=== PATIENT | male | born 1970 | race Caucasian/White ===

== ENCOUNTER 2023-04-09 11:20 | Outpatient (AMB) | payer OTHER, SELFPAY ==
--- NOTE | 2023-04-09 11:31 | A.OFFVIS_ITS ---
Intake Intake Visit Reasons: lower back pain [facility] Specialist Required: No Assessment & Plan Assessment & Plan (1) Lumbar stenosis: Code(s): M48.061 - Spinal stenosis, lumbar region without neurogenic claudication Plan Mr Fajardo is known to us from C5-6, C6-7 ACDF for cervical myelopathy done in 2018 at [facility]. He recovered from that nicely has been caring on with his life but has developed a left leg radiculopathy. It starts in his left buttock goes down to his posterior thigh and into his outer calf. He will have occasional tingling sensation on the outside of his foot. He has tried to treat it with physical therapy, gabapentin and Motrin. These things to help to a degree, but do not completely take it away. The symptoms are aggravated with a ctivity. He can make it go away by sitting down. He is considering an injection in his low back but want to check with us 1st as to whether this would be a reasonable option. He has a lumbar MRI done in the [place] showing lumbar stenosis at L4-5 he came to review that. Past medical history: As mentioned he had a see put spine surgery, shoulder surgery, Achilles surgery, he has also had carpal tunnel and ulnar nerve release. Medications: Gabapentin and Motrin Social history does not smoke Allergies: Penicillin Physical exam: He is awake alert oriented no acute distress, he has full strength of bilateral lower extremities, gait is normal Imaging: Lumbar MRI done in the [place] years 2022 shows that he has normal alignment of the spine with some mild disc degeneration at L4-5. 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 There is no stenosis at any other levels. Impression: This is a 52-year-old gentleman known to us from a previous cervical myelopathy and anterior cervical fusion at C5-6 and C6-7 2018 who presents today for follow-up evaluation about his low back. He has claudicating left leg pain going down to his outer calf. He has moderate to severe stenosis at L4-5. He has tried physical therapy, Motrin and gabapentin. At this point the symptoms are manageable so he is not really interested in surgery. He was going to consider an injection but really is not feeling a lot of confidence that that will do much and he does not want the cortisone injected into his body. I reassured him that this is not a dangerous condition but 1 that will generally get worse over time and if the symptoms progress to where they are not managed well with the non operative treatments that he would be likely a good candidate for left L4-5 decompression. Total amount of time spent in this visit was 45 minutes in discussion of symptoms, lumbar imaging results and subsequent plan of care Lucio Kunz MD,PhD [facility] Coding Level of Care Code New Pt Level 4 (80824) Diagnoses Lumbar stenosis M48.061
== END 2023-04-09 11:55 | disposition home or self-care (01) ==
PROVIDERS: Visit Provider Physician Assistant
DX: M48.061 Spinal stenosis, lumbar region without neurogenic claudication (principal)
CPT/HCPCS: 99204

== ENCOUNTER → 2023-04-09 11:20 | Outpatient (BNVA) | payer OTHER, SELFPAY | PROVIDERS: Visit Provider Physician Assistant | DX: M48.061 Spinal stenosis, lumbar region without neurogenic claudication (principal) | CPT/HCPCS: 99202 ==

== ENCOUNTER 2025-03-10 14:15 | Outpatient (REF) | payer OTHER, SELFPAY ==
--- NOTE | ~2025-03-10 | XR_ITS ---
EXAMINATION: Lumbar spine 4 views. CLINICAL INDICATION: Low back pain. COMPARISON: None. FINDINGS: There is maintained lumbar lordosis. The vertebral and heights and alignment is normal. There is loss of disc height virtually at every disc level with moderate ventral spondylosis at all disc levels. No aggressive lytic or sclerotic process seen. The paravertebral soft tissues are normal. SI joints are normal. No acute fracture, lytic or sclerotic process seen. XR/XR lumbar spine 4V min IMPRESSION: Degenerative disc changes with ventral spondylosis. No visible acute fracture or dislocation seen. Electronically signed by: Mario Brooks MD 03/10/2025 02:58 PM EDT
== END 2025-03-10 14:16 | disposition home or self-care (01) ==
LOC: HO.HOSX 14:15
PROVIDERS: Visit Provider Physician Assistant
DX: M51.360 Other intervertebral disc degeneration, lumbar region with discogenic back pain only (principal)
CPT/HCPCS: 72110; 99212

== ENCOUNTER 2025-03-10 14:15 | Outpatient (AMB) | payer OTHER, SELFPAY ==
--- NOTE | 2025-03-10 14:17 | A.SPINEOV_ITS ---
Vital Signs 03/10/25 14:20 Height 5 ft 7 in Weight 260 lb BMI 40.7 Intake Visit Reasons: Discuss left L4-5 decompression. Intake Note: Mr. Fajardo is here today to Discuss Surgery. Production Supervisor Required: No Allergies Penicillins Allergy (Severe, Verified 03/10/25 14:20) Rash Physical Exam Vital Signs: BMI result Body Mass Index 40.7 Assessment & Plan Assessment & Plan (1) Back pain: Code(s): M54.9 - Dorsalgia, unspecified Category: Medical Plan Mr Fajardo is here in follow-up. It has been over a year since we last saw him for his lumbar spine issues. The left leg pain he was having is gone more less. What he is dealing with now is a lower lumbar centralized pain in his back when he is bending, getting up from a chair or doing any kind of activity where he is on his feet having to walk or stand for any length of time. He can take [id number] pain medications to relieve it but it does not really help all that much. He has been having his son do some manual traction pulling on his legs and that does seem to help, he feels like it realign him to some degree. On exam he is not demonstrating any focal motor deficits. Reflexes are brisk but he has a known history of cervical myelopathy in the past. I did x-rays here today in the office and this shows multilevel degenerative disc disease, no evidence of instability on flexion or extension. I would like to order an MRI, he would like it done at [facility]. However, I did warn him that often insurance companies will require 6 weeks of PT for allowing this to be done, so if it is denied that would be the case. He understands. We can call him with results since he lives so far away. Total amount of time spent in this visit was 20 minutes in discussion of symptoms, x-ray imaging results and subsequent plan of care Lucio Kunz MD,PhD [facility] Orders: Orders XR lumbar spine 4V min Today M54.9 - Dorsalgia, unspecified MR lumbar spine wo con Today M54.9 - Dorsalgia, unspecified Coding Level of Care Code Est Pt Level 3 (32408) Diagnoses Back pain M54.9
[2025-03-10 14:20] VITALS: BMI 40.7
== END 2025-03-10 15:05 | disposition home or self-care (01) ==
LOC: HO.HNS 14:16
PROVIDERS: Visit Provider Physician Assistant
DX: M54.9 Dorsalgia, unspecified (principal)
CPT/HCPCS: 99213

== ENCOUNTER → 2025-03-10 14:42 | Outpatient (BNV) | payer OTHER, SELFPAY | PROVIDERS: Visit Provider Radiology Diagnostic Radiology | DX: M54.50 Low back pain, unspecified (principal) | CPT/HCPCS: 72110 ==

== ENCOUNTER 2025-04-07 11:38 | Outpatient (AMB) | payer OTHER, SELFPAY ==
--- NOTE | 2025-04-07 11:56 | HO.SPINEOV ---
Intake Visit Reasons: MRI f/u Intake Note: Mr. Fajardo is here today to F/u on the results of his MRI. Child Caregiver Required: No Allergies Penicillins Allergy (Severe, Verified 03/10/25 14:20) Rash Assessment & Plan Assessment & Plan (1) Sacroiliitis, not elsewhere classified: Code(s): M46.1 - Sacroiliitis, not elsewhere classified Category: Medical Plan: Dear colleague, On 04/07/2025, I saw in clinic Marcelo Banks review his MRI of the lumbar spine. He states that he is having pain in the right SI joint area. The pain is worse with standing and walking. Used to be able to pop that area back into place to alleviate the symptoms. The pain is worse with turning in bed. A belt improves his symptoms. These are all characteristic of sacroiliitis. I reviewed the MRI of the lumbar spine of [facility] of 03/19/2025 which shows multilevel lumbar degenerative disc disease and mild to moderate spinal stenosis at L4-5. I would like to refer him for right SI joint injection instead of further focusing on the lumbar spine. I spent 25 minutes in his consult to review imaging and discussing plan of care. Orders: Referrals Pain Management Referral M46.1 - Sacroiliitis, not elsewhere classified Coding Level of Care Code Est Pt Level 3 (49203) Diagnoses Sacroiliitis, not elsewhere classified M46.1
--- OUTSIDE RECORDS SUMMARY | 2025-04-07 14:06 | XMS_ITS | Encounter Summary ---
Author Organization [employer] Address [address] [place] [address] Care Team Providers Care Engineer Technical Staff Name Role Phone Jerel Dubose Primary Care Provider [phone] Matthew Bernard Unavailable Encounter Details Date Type Department Care Team ([facility] st Contact Info) Description 01/11/2025 Telephone [facility] [address] [place] [address] Jerel Dubose [address] [place] [address] Social History Tobacco Use Types Packs/Day Years Used Date Smoking Tobacco: Never Passive Smoke Exposure: Never Smokeless Tobacco: Never Alcohol Use Standard Drinks/Week Comments Never 0 (1 standard drink = 0.6 oz pur e alcohol) Sex and Gender Information Value Date Recorded Sex Assigned at Male 08/10/2023 1:24 PM EDT Legal Sex Male 8:33 PM EDT Gender Identity Male 08/10/2023 1:24 PM EDT Sexual Orientation Don't know 08/10/2023 1: 24 PM EDT documented as of this encounter Miscellaneous Notes * Telephone Encounter - Mariya Oreilly - 01/11/2025 1:15 PM EDT Patient is calling looking for a referral to be sent somewhere her can be put under anesthesia, please advise patient when sent out Call back # [phone] documented in this encounter Plan of Treatment Not on file documented as of this encounter Visit Diagnoses Not on filedocumented in this encounter Care Teams Engineer Technical Staff Relationship Specialty Start Date End Date Bitunov, Maxim [address] [place] [address] PCP - General 10/13/23 Matthew Bernard [address] [place] [address] Endocrinology 10/13/23 documented as of this encounter
--- OUTSIDE RECORDS SUMMARY | 2025-04-07 14:06 | XMS_ITS | Data Portability ---
Author Organization [place] - [facility], [facility] Occupational Work Experience Teacher Address [address] [place] [address] Assessment Encounter Date Assessment Date Assessment LastModified by Organization Details LastModified Time 11/14/2024 11/14/2024 Reason for Encounter [place] Encounter Date: 2:00 PM - 11/14/2024 Treating Provider: ELIANA Jack Problems Problems reviewed by: Yared Meza Problems reviewed on: 11/14/2024 02:00 pm Arthritis Severe headache/migraines Diabetes type 2 High blood pressure Asthma G.E. reflux Allergies Allergies reviewed by: Yared Meza Allergies reviewed on: 11/14/2024 02:00 pm Penicillins Medications Medications reviewed by: Yared Meza Medications reviewed on: 11/14/2024 02:00 pm omeprazole gabapentin 300 mg capsule ZyrTEC Concerta lisinopriL Motrin IB 200 mg tablet albuterol 90 mcg/actuation aerosol inhaler testosterone 100 mg/mL intramuscular suspension clindamycin HCL 300 mg capsule azithromycin 250 mg tablet ibuprofen 600 mg tablet Completed Procedures D2950 - Core buildup, including any pins when required Teeth: 4 D2740 - [place] - porcelain/ceramic substrate Teeth: 13 Stages: One Completed Procedures (cont.) CROWN PREPARATION for Zirconia crown # 13 [facility]. Medical History reviewed, per patient no changes. Reason for crown: decay undermining the distal surface of the crown. SHADE: B1 at cervical 1/3 and at incisal and middle 1/3. Pt is happy with shade. Anesthesia: infiltration using 1 in 100k epi articaine half a carpule. Bite impression for temporary crown fabrication with Status Blue for temp. Prepped tooth for ceramic crown using jud burrs, removed decay. Good Occlusal clearance. Luxatemp temp (Shade A3.5 made, occlusion checked. EMBONTE temporary cement used. Cleaned excess, checked contacts & occlusion. No complications. NV:CROWN DELIVERY #13 APatient presented to clinic for a composite filling on tooth-# 4 core build up post rct Reviewed current medical history and there are no contraindications or changes.a Reviewed risks and benefits and alternatives for today's procedure with the patient. Discussed possibility of post op tooth discomfort and in some cases needing a root canal after fillings. No therapy option was mentioned but disadvised. Verbal consent for today's procedure obtained. Anesthesia INFILTRATION USING 1 IN 100 K 2 %EPI LIDOCAINE 1 CARPULES. Caries excavation done using high speed handpiece and low speed round bur, spoon excavator closer to end of preparation. The decay is deep into dentin. Etched using 37% Phosphoric acid, rinsed and dried. Bonded with Scotch Hansen and cured. Restored in a 1.5-2mm incremental layer with flowable ( BEAUTIFUL) + packable ( FILTEK SUPREME) composite resin (Shade A2). Cured for 40 seconds. Finished, adjusted and polished occlusion. Checked interproximal and occlusion. nv #13 deliver Additional Comments: Explained and discussed conditions, findings, and plan of care. Follow-Up/Next Visit: Next appointment date is 11/29/2024 at 08:30 AM Treating Provider: Wandy MONROY Reason For Encounter: Recare Treating Provider ELIANA Jack I attest that the treatment rendered today was completed. , 8:28 PM. [email or web address] Not available 11/15/2024 13:25:32 11/29/2024 11/29/2024 Reason for Encounter Recare Encounter Date: 8:30 AM - 11/29/2024 Treating Provider: ELIANA Jack Problems Problems reviewed by: Salma Bell Problems reviewed on: 11/29/2024 08:45 am Arthritis Severe headache/migraines Diabetes type 2 High blood pressure Asthma G.E. reflux Allergies Allergies reviewed by: Salma Bell Allergies reviewed on: 11/29/2024 08:46 am Penicillins Medications Medications reviewed by: Salma Bell Medications reviewed on: 11/29/2024 08:46 am omeprazole gabapentin 300 mg capsule ZyrTEC Concerta lisinopriL Motrin IB 200 mg tablet albuterol 90 mcg/actuation aerosol inhaler testosterone 100 mg/mL intramuscular suspension clindamycin HCL 300 mg capsule azithromycin 250 mg tablet ibuprofen 600 mg tablet Completed Procedures D0120 - Periodic oral evaluation - established patient D1330 - Oral hygiene instructions D1110 - Prophylaxis - adult D0210 - Intraoral - comprehensive series of radiographic images D0603 - Caries risk assessment and documentation, with a finding of high risk Completed Procedures (cont.) D0120 Periodic Exam Patient presents to the clinic for a Periodic exam. Chief complaint: '' need my crown done on upper right side '' Patient interaction: pleasant patient, tolerated treatment well. Reviewed current medical history. Contraindications to treatment: Yes/No Last Dental Visit: Oral Hygiene: Brushing 2/day, flossing 2/day Tobacco use: non user EXTRA ORAL EXAM: Head/Neck Exam: WNL RADIOGRAPHIC FINDINGS: Radiographic bone loss: Moderate (15-35%) Caries: (Interproximal and occlusal decay) or NA Periapical: No signs of periapical lesions probable along the upper left #15 area, possible recurrent decay underneath occlusal scientology Subgingival calculus absent INTRAORAL EXAM: Oral Cancer Screening: WNL New Findings: Occlusion Dental -Caries:nothing new noted, there is possible discrepancy along the crown #5 on PA, #4 planne dfor crown, mesial surface decay is deep. Periodontal findings: Probing depth: 2-3mm. Inflammation, Calculus: mild Localized: Supragingival Gingiva: [place],Knife-edge, Soft, Inflamed in some areas mostly left posterior area, Oral hygiene: Fair DIAGNOSIS: -Periodontal: Stage 1periodontitis, generalized localized (>30% of teeth) and grading: mild risk, thete is buccal recession in the range of 2mm along #3 and #14 area -Caries risk: High Risk - D0603, TREATMENT PLAN GIVEN. -Prophylaxis -Extractions:referr al for #32 -Restorations:#15 0, -Core build-up and Crowns #4 Notes: Findings, risks, benefits, alternatives, and consequences of no treatment explained. REFERRALS: Oral Surgeon Patient dismissed in good order after all questions answered. D1110 Adult prophy Patient presents to the clinic for Adult Prophylaxis Patient interaction: pleasant patient, tolerated treatment well. Full mouth ultrasonic and hand scaling done, polished and flossed all contacts. Floss in between all teeth. Oral hygiene instructions given, including demo in brushing, flossing and use of interproximal brush. Patient was encouraged to brush teeth 2x daily for 2 minutes and floss and use interproximal brush daily. Patient dismissed in good order after all questions answered. NV: CROWN #4 Additional Comments: Explained and discussed conditions, findings, and plan of care. Follow-Up/Next Visit: Next appointment date is 06/07/2025 at 08:30 AM Treating Provider: Wandy MONROY Reason For Encounter: Recare Adult Treating Provider ELIANA Jack I attest that the treatment rendered today was completed. , 10:24 AM. [email or web address] Not available 11/30/2024 11:53:02 11/30/2024 11/30/2024 Reason for Encounter [place] Encounter Date: 8:00 AM - 11/30/2024 Treating Provider: ELIANA Jack Problems Arthritis Severe headache/migraines Diabetes type 2 High blood pressure Asthma G.E. reflux Allergies Penicillins Medications omeprazole gabapentin 300 mg capsule ZyrTEC Concerta lisinopriL Motrin IB 200 mg tablet albuterol 90 mcg/actuation aerosol inhaler testosterone 100 mg/mL intramuscular suspension clindamycin HCL 300 mg capsule azithromycin 250 mg tablet ibuprofen 600 mg tablet Completed Procedures D2740 - [place] - porcelain/ceramic substrate Teeth: 4 Stages: One Completed Procedures (cont.) CROWN PREPARATION for Zirconia crown # 4 [facility]. Medical History reviewed, per patient no changes. Reason for crown: decay undermining the mesial surface of the crown with rct completed. SHADE: B1 at cervical 1/3 and at incisal and middle 1/3. Pt is happy with shade. Anesthesia: infiltration using 1 in 100k epi articaine half a carpule. Bite impression for temporary crown fabrication with Status Blue for temp. Prepped tooth for ceramic crown using jud burrs, removed decay. Good Occlusal clearance. Luxatemp temp (Shade A3.5 made, occlusion checked. EMBONTE temporary cement used. Cleaned excess, checked contacts & occlusion. No complications. NV:CROWN DELIVERY # 4 Additional Comments: Explained and discussed conditions, findings, and plan of care. Follow-Up/Next Visit: Next appointment date is 06/08/2025 at 08:00 AM Treating Provider: Wandy MONROY Reason For Encounter: Recare Adult Treating Provider ELIANA Jack I attest that the treatment rendered today was completed. , 12:47 PM. [id number] Not available 12/01/2024 10:06:04 12/09/2024 12/09/2024 Reason for Encounter Limted/Emergency Encounter Date: 9:00 AM - 12/09/2024 Treating Provider: ELIANA Jack Problems Problems reviewed by: Mariya Chakraborty Problems reviewed on: 12/09/2024 09:28 am Arthritis Severe headache/migraines Diabetes type 2 High blood pressure Asthma G.E. reflux Allergies Allergies reviewed by: Mariya Chakraborty Allergies reviewed on: 12/09/2024 09:28 am Penicillins Medications Medications reviewed by: Mariya Chakraborty Medications reviewed on: 12/09/2024 09:28 am omeprazole gabapentin 300 mg capsule ZyrTEC Concerta lisinopriL Motrin IB 200 mg tablet albuterol 90 mcg/actuation aerosol inhaler testosterone 100 mg/mL intramuscular suspension clindamycin HCL 300 mg capsule azithromycin 250 mg tablet ibuprofen 600 mg tablet Completed Procedures D0171 - Re-evaluation - post-operative office visit Completed Procedures (cont.) pt presenst for recementation of temp crown as it came off. recemented the crown with tempbond and pt will return for delivery of final crown. nv deliver crown Additional Comments: Explained and discussed conditions, findings, and plan of care. Follow-Up/Next Visit: Next appointment date is 01/19/2025 at 03:30 PM Treating Provider: Wandy MONROY Reason For Encounter: Cr/Br Insert Treating Provider ELIANA Jack I attest that the treatment rendered today was completed. , 10:26 AM. [email or web address] Not available 12/12/2024 10:22:09 12/15/2024 12/15/2024 Reason for Encounter Cr/Br Insert Encounter Date: 2:30 PM - 12/15/2024 Treating Provider: ELIANA Jack Problems Arthritis Severe headache/migraines Diabetes type 2 High blood pressure Asthma G.E. reflux Allergies Penicillins Medications omeprazole gabapentin 300 mg capsule ZyrTEC Concerta lisinopriL Motrin IB 200 mg tablet albuterol 90 mcg/actuation aerosol inhaler testosterone 100 mg/mL intramuscular suspension clindamycin HCL 300 mg capsule azithromycin 250 mg tablet ibuprofen 600 mg tablet Completed Procedures D2740 - [place] - porcelain/ceramic substrate Teeth: 4 13 Stages: Final, Final Completed Procedures (cont.) Pt presents to clinic for Zirconia crown #4 ,#13 seating. Reviewed med Hx and meds. No changes. Removed temp crown and cleaned excess cement. Tried crown on, checked margins and occlusion, adjusted occlusion to appropriate level. Took Pre-Cementation BW to see margins// ALL MARGINS ARE SUPRAGINGIVAL AND CLINICALLY VISIBLE. [place] fits well. Placed hansen on tooth, and cemented crown with Rely-X according to video production coordinator's instructions. Checked occlusion and interproximal contacts and cleaned excess cement. Cured for 40 seconds. Post op instructions given. Pt is happy with shade and fit of crown. No complications from today's Apt. NV periodic recall and follow up Additional Comments: Explained and discussed conditions, findings, and plan of care. Follow-Up/Next Visit: Next appointment date is 01/19/2025 at 03:30 PM Treating Provider: Wandy MONROY Reason For Encounter: Cr/Br Insert Treating Provider ELIANA Jack I attest that the treatment rendered today was completed. , 4:39 PM. [email or web address] Not available 12/21/2024 15:37:11 Plan of Treatment Reminders Order Date Submit Date Provider Last Modified By Organization Details Last Modified Time Details Appointments Dental 60 2025 08:00A M ELIANA Bardales Not available Not available Not available Dental 60 2025 08:00A M RENE LORENZ BDS Not available Not available Not available Lab None recorded . Referral None recorded . Procedures None recorded . Surgeries None recorded . Imaging None recorded . Medication Orders None recorded . Patient TargetsNo targets recorded. Patient InstructionsNo instructions recorded. Reason for Referral None Reported. Medical Equipment None Reported. Allergies Allergen ID Allergen Name Allergen Category Reaction Reaction Severity Criticality Documentation Date Start Date Code Code System Note Provider Name and Address Organization Details Recorded Time 522064 Product containin g penicilli n (product) medicatio n rash Not available Not available 03/21/2022 25112 8001 SNOMED Not Available [facility] - 3792 09:58:21 Medications Name Sig Start Date Stop Date Status Note LastModified by Organization Details LastModified Time clindamycin HCl 300 mg capsule Take 1 capsule every 6 hours by oral route with meal(s) for 7 days. 2023 active Not Available Not Available Not Avai lable azithromycin 250 mg tablet TAKE 2 TABLETS (500 MG) BY ORAL ROUTE ONCE DAILY FOR 1 DAY THEN 1 TABLET (250 MG) BY ORAL ROUTE ONCE DAILY FOR 4 DAYS 2024 active Not Available Not Available Not Avai lable Motrin IB 200 mg tablet active Not Available Not Available No t Available testosterone 100 mg/mL intramuscular suspension active Not Available Not Available N ot Available gabapentin 300 mg capsule active Not Available Not Available N ot Available albuterol 90 mcg/actuation aerosol inhaler active Not Available Not Availa ble Not Available ibuprofen 600 mg tablet Take 1 tablet 3 times a day by oral route with meal(s) for 10 days. 2024 active Not Available Not Available Not Avai lable omeprazole active Not Available Not Av ailable Not Available lisinopril active Not Available Not Av ailable Not Available Zyrtec active Not Available Not Availa ble Not Available Concerta active Not Available Not Avai lable Not Available Vitals None Recorded Social History None recorded. Functional Status None recorded. Mental Status None recorded. Family History Nothing Reported. Medical History No medical history recorded. Past Encounters Encounter ID Performer Location Encounter Start Date Encounter Closed Date Diagnosis/Indication Diagnosis SNOMED-CT Code Diagnosis ICD10 Code Diagnosis IMO Codes Diagnosis Note [id number] Jaycee Rosales [facility] [address] [place] [address] 03/21/2022 09:51:56 03/28/2022 13:47:02 [id number] ELIANA Espana [facility] [address] [place] [address], [place] [id number] 08/03/2023 09:06:50 08/04/2023 09:19:44 [id number] ROSELYN CHAMPOIN, [facility] [address] [place] [address], [place] [id number] 12/01/2023 10:22:38 12/01/2023 16:27:44 [id number] ROSELYN CHAMPION, [facility] [address] [place] [address], [place] [id number] 02/22/2024 08:54:58 02/23/2024 17:18:04 [id number] Wandy obando, [facility] [address] [place] [address], [place] [id number] 09/27/2024 07:55:05 09/30/2024 10:06:24 [id number] Wandy obando, [facility] [address] [place] [address], [place] [address] 10/06/2024 08:04:00 10/11/2024 10:24:18 [id number] Wandy obando, [facility] [address] [place] [address], [place] [id number] 10/17/2024 14:02:25 10/21/2024 13:00:15 [id number] Wandy obando, [facility] [address] [place] [address], [place] [id number] 10/28/2024 13:28:07 10/31/2024 13:39:22 [id number] Wandy obando, [facility] [address] [place] [address], [place] [address] 11/14/2024 13:56:37 11/15/2024 13:25:38 [id number] Wandy obando, [facility] [address] [place] [address], [place] [address] 11/29/2024 08:31:05 11/30/2024 11:53:07 [id number] Wandy obando, ELIANA [facility] [address] [facility] [address] 11/30/2024 07:59:18 12/01/2024 10:06:09 [id number] ELIANA E[place] [facility] [address] [address] 12/09/2024 09:10:20 12/12/2024 10:22:14 [id number] Wandy obando, [facility] [place] [address] [place] [address] 12/15/2024 14:22:15 12/21/2024 15:37:16 Health Concerns Section Related Observation LastModified by Organization Detai ls LastModified Time None Recorded Concern Status LastModified by Organization Details LastModified Time None Recorded Advance Directives Directive None Recorded Payers Insurance Date Sequence Insurance Name Policy Number Policy Lind Covered Member ID Lind Member ID Guarantor Name 10/19/2024 [place] [id number] Marcelo Fajardo [id number] Marcelo Fajardo 10/19/2024 [employer] Marcelo Fajardo [id number] Marcelo Fajardo 10/19/2024 [place] [facility] Marcelo Fajardo [id number] Marcelo Fajardo 01/25/2025 [facility] MEDICARE/MEDIC AID Marcelo Fajardo [id number] Marcelo Fajardo 11/29/2024 2 [place] Marcelo Fajardo [id number] Marcelo Fajardo 10/19/2024 [place] Marcelo Fajardo [id number] Marcelo Fajarod 01/25/2025 1 [facility] - DOS PRIOR TO 2022 - DUAL ELIGIBLE (MEDICARE REPLACEMENT/AD VANTAGE - HMO) Marcelo Fajardo [id number] Marcelo Fajardo 03/21/2022 [employer] [facility] (MOVED TO HOLD) Marcelo Fajardo [id number] Marcelo Fajardo 03/21/2022 *SELF PAY* Marcelo Fajardo
--- OUTSIDE RECORDS SUMMARY | 2025-04-07 14:06 | XMS_ITS | Clinical Summary ---
Author Organization [employer] Address [address] [facility] 7 [place] [address] Care Team Providers Care Patient Service Representative Name Role Phone Jerel Dubose Primary Care Provider [phone] Matthew Bernard Unavailable Allergies Active Allergy Reactions Criticality Noted Date Comments Amitriptyline Rash Low 08/24/2023 Baclofen 08/24/2023 Other Reaction(s): muscle spams Clindamycin 08/24/2023 Other Reaction(s): c diff Codeine 08/24/2023 Other Reaction(s): chest pains Escitalopram Rash Low 08/24/2023 Gabapentin Rash Low 08/24/2023 Hydrocodone 10/02/2023 Other Reaction(s): nightmares Ketorolac Tromethamine Rash Low 08/24/2023 Metronidazole Rash Low 08/24/2023 Paroxetine 08/24/2023 Other Reaction(s): priapism Penicillin G Rash Low 08/24/2023 Penicillins Rash Low 10/02/2023 Prednisone 08/24/2023 Other Reaction(s): facial edema/anxiety/aggitation /bronchospasm Pregabalin Rash Low 08/24/2023 Sulfa Antibiotics 10/02/2023 Other Reaction(s): rash/fever Sulfamethoxazole-Trimethopri m 10/02/2023 Other Reaction(s): rash/fever Topiramate 08/24/2023 Other Reaction(s): weight gain Venlafaxine 08/24/2023 Other Reaction(s): extreme fatigue Medications albuterol 108 (90 Base) MCG/ACT inhaler Active albuterol (2.5 MG/3ML) 0.083% nebulizer solution 3 mL. 1 Active albuterol 108 (90 Base) MCG/ACT inhaler 2 puffs. Active clindamycin (Cleocin) 300 MG capsule Take 1 capsule every 6 hours by oral route with meal(s) for 7 days. 4 Active clotrimazole (Clotrimazole AF) 1 % cream 1 Application. in the morning and 1 Application. in the evening. 3 Active econazole nitrate 1 % cream 1 Application. in the morning. 3 Active fluticasone (Flonase) 50 MCG/ACT nasal spray 1 spray in the morning. Active fluticasone (Flovent) 110 MCG/ACT inhaler 1 puff in the morning and 1 puff in the evening. Active gabapentin (Neurontin) 300 MG capsule Activ e hydroCHLOROthi azide (HYDRODiuril) 25 MG tablet 1 tablet in the morning. Active hydrOXYzine pamoate (Vistaril) 25 MG capsule 2 capsules. Active ibuprofen (Motrin IB) 200 MG tablet Active lidocaine (Lidoderm) 5 % patch daily. 2 Active omeprazole (PriLOSEC) [address] capsule twice a day. 3 Active ondansetron (Zofran) 4 MG tablet TAKE 1 TABLET BY MOUTH ONCE DAILY NEEDED FOR VOMITING WITH HEADACHE NEEDED Orally daily PRN vomiting for 30 3 Active Omeprazole Magnesium (PRILOSEC PO) Active testosterone (Androgel) 50 MG/5GM (1%) gel daily. Active prochlorperazi ne (Compazine) 10 MG tablet 1 tablet. 3 Active testosterone cypionate (Depo-Testoste nano) 100 MG/ML injection Active dexmethylpheni date XR (Focalin XR) 35 MG 24 hr capsule 4 Active emtricitabine- tenofovir DF (Truvada) 200-300 MG tablet Take 1 tablet by mouth Once per day. 4 Active Breo Ellipta 100-25 MCG/ACT aerosol powder 4 Active lisinopril 40 MG tablet Take 40 mg by mouth Once per day. 4 Active methylphenidat e (Ritalin) 10 MG tablet 4 Active Ozempic, 1 MG/DOSE, 4 MG/3ML solution pen-injector INJECT 1 MG (0.75 ML) SUBCUTANEOUSLY WEEKLY 4 Active sildenafil (Viagra) 100 MG tablet TAKE 1 TABLET BY MOUTH DAILY NEEDED FOR SEXUAL ACTIVITY. TAKE 30 MINUTES TO 4 HOURS BEFORE ACTIVITY 4 Active B-D 3CC LUER-ALEJA SYR 33FO2-9/2 22G X 1-1/2 3 ML misc 4 Active cetirizine (ZyrTEC) 10 MG tablet 3 Active triamcinolone (Nasacort) 55 MCG/ACT nasal inhaler 3 Active traZODone (Desyrel) 100 MG tablet 3 tabs qhs Active Active Problems Problem Noted Date Diagnosed Date Dental caries 10/31/2023 Achilles tendinitis 08/24/2023 Athlete's foot 08/24/2023 Tinea pedis 08/24/2023 Cervicalgia 08/24/2023 Benign prostatic hyperplasia 08/24/2023 Chest pain 08/24/2023 Headache 08/24/2023 Chronic pain 08/24/2023 Class 2 obesity 08/24/2023 Disorder of upper respiratory system 08/24/2023 Erectile dysfunction 08/24/2023 Excessive eating 08/24/2023 Gastroesophageal reflux disease 08/24/2023 Hyperlipemia 08/24/2023 Hypertension 08/24/2023 Incontinence 08/24/2023 Malaise and fatigue 08/24/2023 Nausea 08/24/2023 Obstructive sleep apnea 08/24/2023 Opioid dependence in remission (CMS/[facility]) 024 Pain in joint involving ankle and foot Posttraumatic stress disorder 08/24/2023 Prediabetes 08/24/2023 Severe recurrent major depre ssion with psychotic features (CMS/HCC) 08/24/2023 Testosterone 99-stbk-totraybyxqnqr deficiency Urinary hesitancy 08/24/2023 Wheal 08/24/2023 Encounters Date Type Department Care Team Description 01/11/[address] [address] Jerel Dubose from Last 3 Months Social History Tobacco Use Types Packs/Day Years [...] Don't know 08/10/2023 1: 24 PM EDT Last Filed Vital Signs Vital Sign Reading Time Taken Comments Blood Pressure 133/87 12/28/2024 7:35 AM EDT Pulse 95 12/28/2024 7:35 AM EDT Temperature 37.1 C (98.7 F) 12/28/2024 7:35 AM EDT Respiratory Rate - - Oxygen Saturation - - Inhaled Oxygen Concentration - - Weight - - Height - - Body Mass Index - - Plan of Treatment Health Maintenance Due Date Last Done Comments CT Colonography 1970 Dental Oral Exam 1970 Dental Prophylaxis 1970 Dental X-Ray: Bitewings 1970 Depression Screening 1970 Diabetes: Hemoglobin A1C 1970 FIT DNA/Cologuard 1970 FIT 1970 FOBT 1970 HIV Screening 1970 Lipid Panel 1970 SDOH Screening 1970 Sigmoidoscopy 1970 Disability Screening 1970 Alcohol/Substance Use Screening 1982 Hepatitis C Screening 1988 Hepatitis B Vaccines (1 of 3 - 19+ 3-dose series) 1989 Colonoscopy 03/07/2019 03/07/2009 Colorectal Cancer Screening 03/07/2019 Zoster Vaccines (1 of 2) 2020 Influenza Vaccine (#1) 2025 , 05/05/2023, 04/11/2022, Additional history exists Tobacco Screening 12/28/2025 12/28/2024 Dental X-Ray: Full Mouth 12/30/2027 12/28/2024, 09/29 DTaP/Tdap/Td Vaccines (4 - Td or Tdap) 05/30/2034 05/30/2024, 07/04/2011, 07/04/2011, Additional history exists RSV Patients and Patients Aged 60 years or older (1 - 1-dose 75+ series) 2045 Pneumococcal Vaccine: 50+ Years Completed 05/05/2023 COVID-19 Vaccine Completed 05/30/2024, 07/2020, 10/31/2020 HIB Vaccines Aged Out No longer eligi ble based on patient's age to complete this topic HPV Vaccines Aged Out No longer eligi ble based on patient's age to complete this topic Hepatitis A Vaccines Aged Out No long er eligible based on patient's age to complete this topic IPV Vaccines Aged Out No longer eligi ble based on patient's age to complete this topic Meningococcal B Vaccine Aged Out No l onger eligible based on patient's age to complete this topic Meningococcal Vaccine Aged Out No charles gerda eligible based on patient's age to complete this topic RSV under 20 months Aged Out No longe r eligible based on patient's age to complete this topic Rotavirus Vaccines Aged Out No longer eligible based on patient's age to complete this topic Procedures Procedure Name Priority Date/Time Associated Diagnosis Comments Full PANORAMIC RADIOGRAPHIC IMAGE Routine 12/28/2024 7:30 AM EDT COLONOSCOPY Routine 03/07/2009 12:00 AM EDT from Last 3 Months or Most Recently Relevant to Health Maintenance Results * COLONOSCOPY: ANABEL PARRISH (03/07/2009 12:00 AM EDT) Anatomical Region Laterality Modality Endoscopy 03/07/2009 Narrative 03/07/2009 12:00 AM EDT Refer to Fovea for result details Legacy Procedure: COLONOSCOPY: ANABEL PARRISH Procedure Note Provider, Estevan, - 09/25/2022 Refer to Fovea for result details Legacy Procedure: COLONOSCOPY: ANABEL PARRISH Historical Provider ENDOSCOPY PROCEDURE ORDER ZHOU Final Result from Last 3 Months or Most Recently Relevant to Health Maintenance Insurance Care Teams Patient Service Representative Relationship Specialty Start Date End Date Jerel Dubose [address] [place] [address] PCP - General 10/13/23 Matthew Bernard [address] [place] [address] Endocrinology 10/13/23
--- OUTSIDE RECORDS SUMMARY | 2025-04-07 14:06 | XMS_ITS | Patient Health Record ---
Author Organization [facility] Address [address] [place] [address] Support Name Relationship Address Phone Marcelo Fajardo Guarantor Unknown [phone] Reason For Referral No Information Medications Medication SIG (Take, Route, Frequency, Duration) Notes Start Date End Date Status sertriline 0 *please review f or potential update for e-prescription and drug interaction check* 02/15/2012 Active trazodone 0 *please review f or potential update for e-prescription and drug interaction check* 02/15/2012 Active Ritalin 20 MG 0 Oral 1 po tid 02/15/2012 Active Zofran 4 MG 0 Oral 2 po prn nausea 02/15/2012 Active lidoderm patch 0 *please review f or potential update for e-prescription and drug interaction check* 02/15/2012 Active omprazole 0 *please review f or potential update for e-prescription and drug interaction check* 02/15/2012 Active Atarax 0 *please review f or potential update for e-prescription and drug interaction check* 02/15/2012 Active clonazePAM 2 MG 0 Oral 2 mg tid 02/15/2012 Active Plan Of Treatment No Information Insurance Providers Payer Name Payer Address Payer Phone Subscriber Number Group Number Insured Name Patient Relationship to Insured Coverage Start Date Coverage End Date MEDICARE B [address] [place], [place] [id number] Marcelo Fajardo Self - patient is the insured [place] Medicaid [address] [place] [address] [phone] [id number] Marcelo Fajardo Self - patient is the insured Medical (General) History Surgical History Surgery Date(Month/Year) 5 rectal surgeries Prior elizabeth geries include 5 rectal surgeries Prior surgeries include 2012-02-16
== END 2025-04-07 12:21 | disposition home or self-care (01) ==
PROVIDERS: Visit Provider Neurological Surgery
DX: M46.1 Sacroiliitis, not elsewhere classified (principal)
CPT/HCPCS: 99213

== ENCOUNTER → 2025-04-07 11:38 | Outpatient (BNVA) | payer OTHER, SELFPAY | PROVIDERS: Visit Provider Physician Assistant | DX: M46.1 Sacroiliitis, not elsewhere classified (principal) | CPT/HCPCS: 99212 ==

== ENCOUNTER 2025-05-02 07:35 | Outpatient (REF) | payer OTHER, SELFPAY ==
--- NOTE | ~2025-05-02 | FL_ITS ---
EXAMINATION: FLUOROSCOPY GUIDANCE FOR NEEDLE PLACEMENT CLINICAL INFORMATION: M46.1 - Sacroiliitis, not elsewhere classified COMPARISON: None available. TECHNIQUE: Fluoroscopy guidance for pain management procedure. FINDINGS: 2 images demonstrate needle placement and contrast injection over the right sacroiliac joint. FLUOROSCOPY TIME: 12 seconds DOSE AREA PRODUCT: 669 mGy-cm2 FL/FL guidance in treatment room IMPRESSION: Fluoroscopy guidance for pain management procedure. Electronically signed by: Shelly Grover MD 05/02/2025 03:11 PM [facility]
--- OUTSIDE RECORDS SUMMARY | 2025-05-02 07:39 | XMS_ITS | Encounter Summary ---
Author Organization [employer] Address [address] [facility] [address] [place] [address] Care Team Providers Care Field Manager Name Role Phone Jerel Dubose Primary Care Provider [phone] Matthew Bernard Unavailable Encounter Details Date Type Department Care Team ([facility] st Contact Info) Description 01/11/2025 Telephone [facility] [address] [place] [address] Jerel Dubose [address] [place] [address] Social History Tobacco Use Types Packs/Day Years [...] patient when sent out Call back # [phone] documented in this encounter Plan of Treatment Not on file documented as of this encounter Visit Diagnoses Not on filedocumented in this encounter Care Teams Field Manager Relationship Specialty Start Date End Date Bitunov, Maxim [address] [place] [address] PCP - General 10/13/23 Matthew Bernard [address] [place] [address] Endocrinology 10/13/23 documented as of this encounter
--- OUTSIDE RECORDS SUMMARY | 2025-05-02 07:39 | XMS_ITS | Data Portability ---
Author Organization [place] [employer] [facility], [facility] [employer] Address [address] [place] [address] Assessment Encounter Date Assessment Date Assessment LastModified by Organization Details LastModified Time 11/14/2024 11/14/2024 Reason for Encounter [place] Encounter Date: 2:00 PM - [...] pins when required Teeth: 4 D2740 - [place] - porcelain/ceramic substrate Teeth: 13 Stages: One Completed Procedures (cont.) CROWN PREPARATION for Zirconia crown # 13 [facility]. Medical History reviewed, per patient no changes. [...] #15 area, possible recurrent decay underneath occlusal religious Subgingival calculus absent INTRAORAL EXAM: Oral Cancer Screening: WNL New Findings: Occlusion Dental -Caries:nothing new noted, there is possible discrepancy along the crown #5 on PA, #4 planne dfor crown, mesial surface decay is deep. Periodontal findings: Probing depth: 2-3mm. Inflammation, Calculus: mild Localized: Supragingival Gingiva: Driggs,Knife-edge, Soft, Inflamed in some areas mostly left [...] 11/30/2024 11:53:02 11/30/2024 11/30/2024 Reason for Encounter [place] Encounter Date: 8:00 AM - [...] 600 mg tablet Completed Procedures D2740 - [place] - porcelain/ceramic substrate Teeth: 4 Stages: One Completed Procedures (cont.) CROWN PREPARATION for Zirconia crown # 4 [facility]. Medical History reviewed, per patient no changes. [...] 600 mg tablet Completed Procedures D2740 - [place] - porcelain/ceramic substrate Teeth: 4 13 Stages: Final, Final Completed Procedures (cont.) Pt presents to clinic for Zirconia crown #4 ,#13 seating. Reviewed med Hx and meds. No changes. Removed temp crown and cleaned excess cement. Tried crown on, checked margins and occlusion, adjusted occlusion to appropriate level. Took Pre-Cementation BW to see margins// ALL MARGINS ARE SUPRAGINGIVAL AND CLINICALLY VISIBLE. [place] fits well. Placed hansen on tooth, and cemented crown with Rely-X according to unix system administrator's instructions. Checked occlusion and interproximal contacts and [...] Name and Address Organization Details Recorded Time [id number] Product containin g penicilli n (product) medicatio n rash Not available Not available 03/21/2022 [id number] SNOMED Not Available [facility] - [...] ICD10 Code Diagnosis IMO Codes Diagnosis Note [id number] Jaycee Rosales [facility] [address] [place] [address] 03/21/2022 09:51:56 03/28/2022 13:47:02 [id number] ELIANA Espana [facility] [address] [place] [address], [place] [address] 08/03/2023 09:06:50 08/04/2023 09:19:44 [id number] ROSELYN CHAMPION, [facility] [address] [place] [address], [place] [address] 12/01/2023 10:22:38 12/01/2023 16:27:44 [id number] ROSELYN CHAMPION, [facility] [address] [place] [address], [place] [address] 02/22/2024 08:54:58 02/23/2024 17:18:04 [id number] Wandy obando, [facility] [address] [place] [address], [place] [address] 09/27/2024 07:55:05 09/30/2024 10:06:24 [id number] Wandy obando, [facility] [address] [place] [address], [place] [address] 10/06/2024 08:04:00 10/11/2024 10:24:18 [id number] Wandy obando, [facility] [address] [place] [address], [place] [address] 10/17/2024 14:02:25 10/21/2024 13:00:15 [id number] Wandy obando, [facility] [address] [place] [address], [place] [phone] 10/28/2024 13:28:07 10/31/2024 13:39:22 [id number] Wandy obando, [facility] [address] [place] [address], [place] [address] 11/14/2024 13:56:37 11/15/2024 13:25:38 [id number] Wandy obando, [facility] [address] [place] [address], [place] [address] 11/29/2024 08:31:05 11/30/2024 11:53:07 [id number] Wandy obando, ELIANA [facility] [address] [place] [address] 11/30/2024 07:59:18 12/01/2024 10:06:09 [id number] ELIANA Espana [facility] [address] [place] [address] 12/09/2024 09:10:20 12/12/2024 10:22:14 [id number] Wandy obando, [facility] [place] [address] [place] [address] 12/15/2024 14:22:15 12/21/2024 15:37:16 Health Concerns Section Related Observation LastModified by Organization Detai ls LastModified Time None Recorded Concern Status LastModified by Organization Details LastModified Time None Recorded Advance Directives Directive None Recorded Payers Insurance Date Sequence Insurance Name Policy Number Policy Lind Covered Member ID Lind Member ID Guarantor Name 10/19/2024 [place] [id number] Marcelo Fajardo [id number] Marcelo Fajardo 10/19/2024 [employer] NET Marcelo Fajardo [id number] Marcelo Fajardo 10/19/2024 [place] [facility] Marcelo Fajardo [id number] Marcelo Fajardo 01/25/2025 [facility] MEDICARE/MEDIC AID Marcelo Fajardo [id number] Marcelo Fajardo 11/29/2024 2 [place] Marcelo Fajardo [id number] Marcelo Fajardo 10/19/2024 [place] 21 Marcelo Fajardo [id number] Marcelo Fajardo 01/25/2025 1 [facility] - DOS PRIOR TO 2022 - DUAL ELIGIBLE (MEDICARE REPLACEMENT/AD VANTAGE - HMO) Marcelo Fajardo [id number] Marcelo Fajardo 03/21/2022 [facility] (MOVED TO HOLD) Marcelo Fajardo [id number] Marcelo Fajardo 03/21/2022 *SELF PAY* Marcelo Fajardo
--- OUTSIDE RECORDS SUMMARY | 2025-05-02 07:39 | XMS_ITS | Clinical Summary ---
Author Organization [employer] Address [address] [facility] 7 [place] [address] Care Team Providers Care Lotus Notes Administrator Name Role Phone Jerel Dubose Primary Care Provider [phone] Matthew Bernard Unavailable Allergies Active Allergy Reactions [...] ACTIVITY 4 Active B-D 3CC LUER-ALEJA SYR 00WF1-4/2 22G X 1-/2 3 ML misc 4 Active cetirizine (ZyrTEC) [...] sleep apnea 08/24/2023 Opioid dependence in remission ([facility]) 024 Pain in joint involving ankle and foot Posttraumatic stress disorder 08/24/2023 Prediabetes 08/24/2023 Severe recurrent major depre ssion with psychotic features ([facility]) 08/24/2023 Testosterone 43-mmhb-homvauxmlydif deficiency Urinary hesitancy 08/24/2023 Wheal 08/24/2023 Social History Tobacco Use Types Packs/Day Years [...] 03/07/2019 Zoster Vaccines (1 of 2) 2020 COVID-19 Vaccine ( - 2024- season) 2025 05/30/2024, 11/30/2020, 10/31/2020 Influenza Vaccine (#1) 2025 , 05/05/2023, 04/11/2022, Additional history exists Tobacco Screening 12/28/2025 12/28/2024 Dental X-Ray: Full Mouth 12/30/2027 12/28/2024, 09/29 DTaP/Tdap/Td Vaccines (4 - Td or Tdap) 05/30/2034 05/30/2024, 07/04/2011, 07/04/2011, Additional history exists RSV Patients and Patients Aged 60 years or older (1 - 1-dose 75+ series) 2045 Pneumococcal Vaccine: 50+ Years Completed 05/05/2023 HIB Vaccines Aged Out No longer eligi [...] result details Legacy Procedure: COLONOSCOPY: ANABEL PARRISH us Historical Provider ENDOSCOPY PROCEDURE ORDER ZHOU Final Result from Last 3 Months or Most Recently Relevant to Health Maintenance Insurance [facility] < 65 [facility]AL - [facility] Care Teams Lotus Notes Administrator Relationship Specialty Start Date End Date Jerel Dubose [address] [place] [address] PCP - General 10/13/23 Matthew Bernard [address] [place] [address] (Work) Endocrinology 10/13/23
== END 2025-05-02 07:36 | disposition home or self-care (01) ==
LOC: CF 07:35
PROVIDERS: Visit Provider Anesthesiology
DX: M46.1 Sacroiliitis, not elsewhere classified (principal); M99.04 Segmental and somatic dysfunction of sacral region
CPT/HCPCS: 27096; J2795; J3301; Q9967

== ENCOUNTER 2025-05-02 12:39 | Outpatient (AMB) | payer OTHER, SELFPAY ==
[2025-05-02 12:48] VITALS: BP 152/80; PULSE 94; RESP 16; O2SAT 96; BMI 40.7
--- NOTE | 2025-05-02 12:48 | MHC.OFFVIS ---
Vital Signs 05/02/25 12:48 05/02/25 13:14 Height 5 ft 7 in Weight 260 lb BMI 40.7 BP 152/80 H 150/80 H Blood Pressure Location Lt brachial Lt brachial Position Sitting Sitting Respiration 16 16 Pulse 94 94 Pulse Source Pulse Oximeter Pulse Oximeter Pulse Oximetry (%) 96 96 Oxygen Delivery Method Room Air Room Air Intake Visit Reasons: Right SIJ inj (per [place]) Allergies Penicillins Allergy (Severe, Verified 03/10/25 14:20) Rash Physical Exam Vital Signs: Last Vital Signs Pulse 94 05/02/25 13:14 Resp 16 05/02/25 13:14 BP 150/80 H 05/02/25 13:14 Pulse Ox 96 05/02/25 13:14 Oxygen Delivery Method Room Air 05/02/25 13:14 BMI result Body Mass Index 40.7 Assessment & Plan Assessment & Plan (1) Sacroiliitis, not elsewhere classified: Code(s): M46.1 - Sacroiliitis, not elsewhere classified Category: Medical (2) Somatic dysfunction of right sacroiliac joint: Code(s): M99.04 - Segmental and somatic dysfunction of sacral region Category: Medical Plan Right therapeutic sacroiliac joint injection. the risks, benefits and alternatives were discussed with the patient and informed consent was obtained, patient was placed in the prone position on the OR Table. Time out was performed delineating correct site and side of the procedure , name and of the patient, patient participated in time out procedure. The lower back and upper buttocks of the patient were prepped with ChloraPrep and draped with sterile self adhesive utility towels. C-arm was brought over the operating field and picture of the right SI joint was demonstrated on the screen. Tilting C-arm contralateral to the left the posterior silhouette of the sacroiliac joint was superimposed on anterior silhouette of the sacroiliac joint. The point slightly medial to the sacroiliac joint silhouette was injected with lidocaine 2%, forming skin wheal. After that 22 gauge 3-1/2 inch spinal needle was inserted through the skin wheal and advanced to were the sacroiliac joint in tunnel vision fashion. When the needle entered the sacroiliac joint capsule injection of the contrast was performed delineating intra-articular and minimally periarticular spread of the contrast. After that injection of the treatment solution of ropivacaine 0.5% 5 cc mixed with kenalog 40 mg into the joint was performed. Upon completion of the injection needle was withdrawn sterile Band-Aid was applied. The patient tolerated the procedure well. Orders: Orders FL guidance in treatment room Today M46.1 - Sacroiliitis, not elsewhere classified Coding Level of Care Code Procedure Only Diagnoses Sacroiliitis, not elsewhere classified M46.1 Somatic dysfunction of right sacroiliac joint M99.04
[2025-05-02 13:14] VITALS: BP 150/80; PULSE 94; RESP 16; O2SAT 96
== END 2025-05-02 13:14 | disposition home or self-care (01) ==
LOC: HO.PMCPRC 12:39
PROVIDERS: Visit Provider Anesthesiology
DX: M46.1 Sacroiliitis, not elsewhere classified (principal); M99.04 Segmental and somatic dysfunction of sacral region
CPT/HCPCS: 27096

== ENCOUNTER 2025-05-31 12:58 | Outpatient (AMB) | payer OTHER, SELFPAY ==
--- NOTE | 2025-05-31 13:08 | MHC.OFFVIS ---
Vital Signs 05/31/25 13:09 Height 5 ft 7 in Weight 268 lb BMI 42.0 BP 152/84 H Blood Pressure Location Lt brachial Position Sitting Respiration 16 Pulse 98 Pulse Source Pulse Oximeter Pulse Oximetry (%) 97 Oxygen Delivery Method Room Air Intake Visit Reasons: s/p right SIJ inj Grinder Set Up Operator Thread Required: No Accompanied by: Self / Same As Patient Allergies Penicillins Allergy (Severe, Verified 05/31/25 13:09) Rash HPI Comments Details: Marcelo is very pleasant 54 years old gentleman who presents today in my office after therapeutic right sacroiliac joint injection which was performed by me on the advice of the neurosurgeon Dr. Kunz. He has longstanding patient of Dr. Peoples, he received ACDF of unknown level from Dr. Peoples 7 years ago. This time he came to the neurosurgical office with complains on lower back pain and after physical exam Dr. Kunz recommended sacroiliac joint injection to the right. It is an excellent results of the injection. Patient reports no pain in sacroiliac joint. He only reports pain in the neck. No pain in the lower back. So his source of the lower back pain is sacroiliitis. Past medical history significant for borderline diabetes, he was on Ozempic now he stopped because of the side effects. He is suffering from hypertension and morbid obesity. He takes for hypertension unknown dose of lisinopril. Past surgical history ACDF as above, shoulder surgery bilateral, Achilles tendon rupture surgery as well as bilateral carpal tunnel. He denies smoking tobacco admits smoking cannabis 2 joints a day. He denies drinking alcohol however in the past he was active alcohol drinking and voluntarily admitted alcoholic anonymous meetings. She is currently nondrinker. Review of Systems Const All systems reviewed & are unremarkable except as noted in HPI and below ENT Reports Normal hearing present Neuro Reports Normal hearing present, Denies Abnormal speech present, Denies confusion and Denies Sensory deficit (Neuro) Psych Denies confusion Physical Exam Vital Signs: Last Vital Signs Pulse 98 05/31/25 13:09 Resp 16 05/31/25 13:09 BP 152/84 H 05/31/25 13:09 Pulse Ox 97 05/31/25 13:09 Oxygen Delivery Method Room Air 05/31/25 13:09 BMI result Body Mass Index 42.0 Const General: no acute distress; No confusion Nutritional Appearance: obese morbidly obese Orientation/consciousness: patient oriented x3 and No confusion Eyes General: appearance normal, both eyes and all related structures Pupils: Equal, round and reactive pupils present EOM: EOMs intact bilaterally Neck Neck: Yes full ROM Chest Chest palpation & inspection: normal inspection of the chest Resp Effort & Inspection: normal respiratory effort, able to speak in complete sentences, normal respiratory pattern, no audible wheezes and no cough Cardio Jugular venous distension: no JVD GI Inspection: Yes normal to inspection Back/Spine/Pelvis Other: Provocative exams were not performed today because of the possibility that provocative tests was returned the patient's pain. Physical exam see description in Dr. Kunz' note. Neuro General: patient oriented x3, gait normal and No confusion Cranial nerves: Yes CN's II-XII intact bilaterally, Yes Equal, round and reactive pupils present, Yes Normal hearing present and Yes Ability to bilaterally elevate shoulders present Speech: No Abnormal speech present Gait exam (Neuro): Normal gait present Motor exam (neuro): 5/5 motor strength present throughout Sensory Exam: No Sensory deficit (Neuro) Extrem General: No pedal edema Psych Speech and movement: Normal speech and movement present Affect: normal affect Attitude: cooperative Thought process: Normal thought process present Thought content: Normal thought content present Insight: Good insight present (Psych) Judgement: Good judgement present (Psych) Assessment & Plan Assessment & Plan (1) Sacroiliitis, not elsewhere classified: Code(s): M46.1 - Sacroiliitis, not elsewhere classified Category: Medical (2) Somatic dysfunction of right sacroiliac joint: Code(s): M99.04 - Segmental and somatic dysfunction of sacral region Category: Medical Plan Risks and benefits of sacroiliac joint injections were reiterated to the patient today we provided today for the patient's sacroiliac joint belt for him to wear preferably 247 but if not possible as much as he can afford. I recommended him to give us a call when his pain in the sacroiliac joint will start to come back. I will see him for the appointment at that time. Coding Level of Care Code New Pt Level 3 (46095) Diagnoses Sacroiliitis, not elsewhere classified M46.1 Somatic dysfunction of right sacroiliac joint M99.04
[2025-05-31 13:09] VITALS: BP 152/84; PULSE 98; RESP 16; O2SAT 97; BMI 42.0
--- OUTSIDE RECORDS SUMMARY | 2025-05-31 14:29 | XMS_ITS | Clinical Summary ---
Author Organization [employer] Address [address] [facility] 7 [place] [address] Care Team Providers Care Api Architect Name Role Phone Jerel Dubose Primary Care Provider [phone] Matthew Bernard Unavailable Allergies Active Allergy Reactions [...] ACTIVITY 4 Active B-D 3CC LUER-ALEJA SYR 94ZV5-1/2 22G X 1-/2 3 ML misc 4 [...] sleep apnea 08/24/2023 Opioid dependence in remission ([facility]) 024 Pain in joint involving ankle and foot Posttraumatic stress disorder 08/24/2023 Prediabetes 08/24/2023 Severe recurrent major depre ssion with psychotic features ([facility]) 08/24/2023 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
--- OUTSIDE RECORDS SUMMARY | 2025-05-31 14:29 | XMS_ITS | Data Portability ---
Author Organization [place] - [employer] [facility] [employer] Address [address] [place] [address] Assessment Encounter Date Assessment Date Assessment LastModified by Organization Details LastModified Time 11/14/2024 11/14/2024 Reason for Encounter [place] Encounter Date: 2:00 PM - [...] pins when required Teeth: 4 D2740 - [place] - porcelain/ceramic substrate Teeth: 13 Stages: One Completed Procedures (cont.) CROWN PREPARATION for Zirconia crown # [facility]. Medical History reviewed, per patient no [...] acid, rinsed and dried. Bonded with Scotch Hartley and cured. Restored in a 1.5-2mm incremental layer with flowable ( BEAUTIFUL) + packable ( FILTEK SUPREME) composite resin (Shade A2). Cured for 40 seconds. Finished, adjusted and polished occlusion. Checked interproximal and occlusion. nv #13 deliver Additional Comments: Explained and discussed conditions, findings, and plan of care. Follow-Up/Next Visit: Next appointment date is 11/29/2024 at 08:30 AM Treating Provider: Wandy MNOROY Reason For Encounter: Recare Treating Provider ELIANA [...] #15 area, possible recurrent decay underneath occlusal bahai Subgingival calculus absent INTRAORAL EXAM: Oral Cancer Screening: WNL New Findings: Occlusion Dental -Caries:nothing new noted, there is possible discrepancy along the crown #5 on PA, #4 planne dfor crown, mesial surface decay is deep. Periodontal findings: Probing depth: 2-3mm. Inflammation, Calculus: mild Localized: Supragingival Gingiva: [place],Knife-edge, Soft, Inflamed in some areas mostly left [...] 11/30/2024 11:53:02 11/30/2024 11/30/2024 Reason for Encounter [place] Encounter Date: 8:00 AM - [...] 600 mg tablet Completed Procedures D2740 - [place] - porcelain/ceramic substrate Teeth: 4 Stages: One Completed Procedures (cont.) CROWN PREPARATION for Zirconia crown # [facility]. Medical History reviewed, per patient no [...] 600 mg tablet Completed Procedures D2740 - [place] - porcelain/ceramic substrate Teeth: 4 13 Stages: Final, Final Completed Procedures (cont.) Pt presents to clinic for Zirconia crown #4 ,#13 seating. Reviewed med Hx and meds. No changes. Removed temp crown and cleaned excess cement. Tried crown on, checked margins and occlusion, adjusted occlusion to appropriate level. Took Pre-Cementation BW to see margins// ALL MARGINS ARE SUPRAGINGIVAL AND CLINICALLY VISIBLE. [place] fits well. Placed hartley on tooth, and cemented crown with Rely-X according to retail center receptionist's instructions. Checked occlusion and interproximal contacts and [...] Modified Time Details Appointments Dental 60 2025 08:30A M Ashley Ayers DDS Not available Not available Not available Dental [...] Name and Address Organization Details Recorded Time [id number] Product containin g penicilli n (product) medicatio n rash Not available Not available 03/21/2022 [id number] SNOMED Not Available [facility] - [...] ICD10 Code Diagnosis IMO Codes Diagnosis Note [id number] Jaycee Rosales [facility] [address] [place], [place] [address]DANIEL Glass VINECNT [address] 3 03/21/2022 09:51:56 03/28/2022 13:47:02 [id number] ELIANA [facility]a [facility] [address] [place] [address], VINCENT [address] 08/03/2023 09:06:50 08/04/2023 09:19:44 [id number] ROSELYN CHAMPION, [facility] [address] [place] [address], VINCENT [address] 3 12/01/2023 10:22:38 12/01/2023 16:27:44 [id number] ROSELYN CHAMPION, [facility] [address] [place] [address], VINCENT [address] 3 02/22/2024 08:54:58 02/23/2024 17:18:04 [id number] Wandy obando, [facility] [address] [place] [address], VINCENT [address] 09/27/2024 07:55:05 09/30/2024 10:06:24 [id number] Wandy obando, [facility] [address] [place] [address], [place] [address] 10/06/2024 08:04:00 10/11/2024 10:24:18 [id number] Wandy obando, [facility] [address] [place] [address], VINCENT [address] 10/17/2024 14:02:25 10/21/2024 13:00:15 [id number] Wandy obando, [facility] [address] [place] [address], VINCENT [phone] 3 10/28/2024 13:28:07 10/31/2024 13:39:22 [id number] Wandy obando, [facility] [address] [place] [address], [place] [address] 11/14/2024 13:56:37 11/15/2024 13:25:38 [id number] Wandy obando, [facility] [address] [place] [address], [place] [address] 11/29/2024 08:31:05 11/30/2024 11:53:07 [id number] Wandy obando [facility] [place] [address] [facility] [place] [address] 11/30/2024 07:59:18 12/01/2024 10:06:09 [id number] ELIANA Espana [facility] [address] [place] [address] 12/09/2024 09:10:20 12/12/2024 10:22:14 [id number] Wandy obando, [facility] [place] [address] [facility] [place] [place] [address] 12/15/2024 14:22:15 12/21/2024 15:37:16 Health Concerns Section Related Observation LastModified by Organization Detai ls LastModified Time None Recorded Concern Status LastModified by Organization Details LastModified Time None Recorded Advance Directives Directive None Recorded Payers Insurance Date Sequence Insurance Name Policy Number Policy Lind Covered Member ID Lind Member ID Guarantor Name 10/19/2024 [place] [id number] Marcelo Fajardo [id number] Marcelo Fajardo 10/19/2024 [employer] NET Marcelo Fajardo [id number] Marcelo Fajardo 10/19/2024 [place] [facility] Marcelo Fajardo [id number] Marcelo Fajardo 01/25/2025 [facility] MEDICARE/MEDIC AID Marcelo Fajardo [id number] Marcelo Fajardo 11/29/2024 2 [place] Marcelo Fajardo [id number] Marcelo Fajardo 10/19/2024 [place] 21 Marcelo Fajardo [id number] Marcelo Fajardo 01/25/2025 1 [facility] - DOS PRIOR TO 2022 - DUAL ELIGIBLE (MEDICARE REPLACEMENT/AD VANTAGE - HMO) Marcelo Fajardo [id number] Marcelo Fajardo 03/21/2022 [facility] (MOVED TO HOLD) Marcelo Fajardo [id number] Marcelo Fajardo 03/21/2022 *SELF PAY* Marcelo Fajardo
--- OUTSIDE RECORDS SUMMARY | 2025-05-31 14:29 | XMS_ITS | Encounter Summary ---
Author Organization [email or web address] Address [address] [facility] [address] [place] [address] Care Team Providers Care Senior Data Quality Analyst Name Role Phone Jerel Dubose Primary Care Provider [phone] Matthew Bernard Unavailable Encounter Details Date Type Department Care Team ([facility] st Contact Info) Description 01/11/[address] [facility] [address] [place] [address] Jerel Dubose [address] [place] [address] Social History Tobacco Use Types Packs/Day Years [...] patient when sent out Call back # [phone] documented in this encounter Plan of Treatment Not on file documented as of this encounter Visit Diagnoses Not on filedocumented in this encounter Care Teams Senior Data Quality Analyst Relationship Specialty Start Date End Date Bitunov, Maxim [address] [place] [address] PCP - General 10/13/23 Matthew Bernard [address] [place] [address] Endocrinology 10/13/23 documented as of this encounter
--- OUTSIDE RECORDS SUMMARY | 2025-05-31 14:30 | XMS_ITS | Patient Health Record ---
Author Organization [facility] Address [address] [place] [address] Support Name Relationship Address Phone Marcelo Fajardo Guarantor Unknown [phone] Reason For Referral No Information Medications Medication [...] B [address] [place], [place] [id number] Marcelo Fajardo Self - patient is the insured [place] Medicaid [address] [place] [address] [phone] [id number] Marcelo Fajardo Self - patient is the insured Medical (General) History Surgical History Surgery Date(Month/Year) 5 rectal surgeries Prior elizabeth geries include 5 rectal surgeries Prior surgeries include 2012-02-16
== END 2025-05-31 13:34 | disposition home or self-care (01) ==
LOC: HO.PMC 12:58
PROVIDERS: Visit Provider Anesthesiology
DX: M46.1 Sacroiliitis, not elsewhere classified (principal); M99.04 Segmental and somatic dysfunction of sacral region
CPT/HCPCS: 99213

== ENCOUNTER → 2025-05-31 12:58 | Outpatient (BNVA) | payer OTHER, SELFPAY | PROVIDERS: Visit Provider Anesthesiology | DX: M46.1 Sacroiliitis, not elsewhere classified (principal); M99.04 Segmental and somatic dysfunction of sacral region | CPT/HCPCS: 99212 ==